=== PATIENT | male | born 1995 | race Caucasian/White ===

== ENCOUNTER 2018-09-23 11:54 | Emergency (ER) | payer OTHER ==
[~2018-09-23] VITALS: Ht 175.3 cm; Wt 69.4 kg
--- NOTE | 2018-09-23 13:12 | NUR ---
Pt to rm 3 from lobby.
[2018-09-23] MEDS ORDERED: ONDANSETRON ODT 4 MG ONE (13:17)
[2018-09-23] MEDS ORDERED: HYDROmorphone 2 MG/ML, 1ML ONE (13:17)
--- NOTE | 2018-09-23 13:22 | NUR ---
LUNCH RN: PT GIVEN ICE PACK, DILUDID IM, AND PLACED ON O2 AND SPO2 MONITOR. FALL TEACHING REVIEWED.
[2018-09-23] MEDS ORDERED: HYDROmorphone 2 MG/ML, 1ML IM ONE (13:30)
[2018-09-23] MEDS ORDERED: ONDANSETRON ODT 4 MG PO ONE (13:30)
--- NOTE | 2018-09-23 13:51 | NUR ---
23 Y/O MALE PRESENTS TO ED WITH C/O LEFT ARM/SHOULDER PAIN. "I WAS SNOWBOARDING TODAY AND LANDED ON MY SHOULDER. I KNOW IT'S BAD." OBVIOUS EDEMA. PT PLACED ON CONT PULSE OX,NIBP. MOTHER BEDSIDE. NO NEEDS REQUESTED AT THIS TIME.
--- NOTE | 2018-09-23 13:51 | NUR ---
PIV ESTABLISHED, PT TOLERATED WITH NO COMPLICATIONS.
[2018-09-23] MEDS ORDERED: MORPHINE SULFATE 4 MG/ML, 1ML IVPush PRN (14:00)
[2018-09-23] MEDS ORDERED: SODIUM CHLORIDE FLUSH 10ML SYR IVF ONE (14:00)
[2018-09-23] MEDS ORDERED: ONDANSETRON 2MG/ML, 2ML IVPush ONE (14:00)
--- NOTE | 2018-09-23 14:09 | NUR ---
PT TO IMAGING.
[2018-09-23] MEDS ORDERED: KETOROLAC 30 MG/1 ML IVPush ONE (14:30)
--- NOTE | 2018-09-23 14:30 | NUR ---
pt back from imaging.
[2018-09-23] MEDS ORDERED: MORPHINE SULFATE 4 MG/ML, 1ML ONE (14:32)
[2018-09-23] MEDS ORDERED: ONDANSETRON 2MG/ML, 2ML ONE (14:32)
[2018-09-23] MEDS ORDERED: KETOROLAC 30 MG/1 ML ONE (14:32)
[2018-09-23 15:38] VITALS: BP 129/89
== END 2018-09-23 15:40 | disposition home or self-care (01) ==
LOC: ED 15:34
DX: S42.212A Unspecified displaced fracture of surgical neck of left humerus, initial encounter for closed fracture (principal); V00.311A Fall from snowboard, initial encounter; Y93.79 Activity, other specified sports and athletics; Y92.328 Other athletic field as the place of occurrence of the external cause; Y99.8 Other external cause status
CPT/HCPCS: 29105; 72125; 73030; 73200; 96372; 96374; 96375; 99284; J1170; J1885; J2405; Q0162